=== PATIENT | male | born 1990 | race Caucasian/White ===

== ENCOUNTER 2022-11-07 10:15 | Outpatient (CLI) | payer OTHER ==
[2022-11-07 11:00] VITALS: BP 114/72
--- NOTE | 2022-11-07 11:00 | SLEEP CARE CONSULTATION ---
Information from patient questionnaire entered by Vaughn Dunn. I have reviewed and concur with the information entered by Vaughn Dunn. This document represents the service I personally performed and the decisions made by me, Judy Campoverde ARNP. History of Present Illness Service Date and Time: 11/07/2022 1015 Reason for Visit: New patient Chief Complaint: reports: Unrefreshed sleep, Snoring, Observed pauses in breathing Date of Onset: 10+YRS Usual bedtime: 12-130AM Time it takes to fall asleep: 5MIN Snores at night: Yes Observed to quit breathing while asleep: Yes Sleeps alone due to snoring: Yes Number of times waking at night: 0 Reasons for waking at night: reports: Other ( will wake him up for snoring or gasping for air in his sleep) Toss, Turn, or Twitch while sleeping: Yes Recalls having dreams: No Usually gets out of bed at: 0645; weekends 7-9 AM Feels refreshed in the morning: No Morning headache: No Sleepy or fatigued during the day: Yes Ever fallen asleep while driving: No Takes day naps: No Dreams during day naps: No Prior sleep studies: No Additional HPI information: I had the pleasure of seeing LIGIA BARBOSA today regarding the possibility of him having a sleep disorder. His current complaints are unrefreshed sleep, snoring and observed pauses in breathing. He states he snores a lot. He states 1-2 years ago he sat up in bed and was gasping for air. His woke up and asked him if he was ok, he told her yes and layed back down and went to sleep. He did not remember this happening. He says his will send him to sleep on the couch on his stomach because of the loud snoring and gasping in his sleep. He wakes up feeling tired and groggy. He states he will wake up "dazed" if he sleeps on his back that lasts for a few hours in the morning. He states that if he sleeps 8 hours he feels worse than if he just sleeps 6.5-7 hours. - Parasomnia Symptoms Ever been unable to move upon waking from sleep: No Walks in sleep: No Talks in sleep: No Ever acted out dreams in sleep: No Ever felt weak in the knees when startled or emotional: No Bothered by creepy, crawly, restless sensations in legs: No Problems with memory or concentration: Yes (both, varies on the day) Subjective Initial [place] Sleepiness Scale score: 10 (11/07/22) Past Medical History Past Medical History: reports: Attention deficit, Other (appendectomy, pilonadil cysts) Social History The patient's occupation is a AM. Patient is and lives in [place]. Have you smoked in the past 12 months: No (still vaping daily) Years of smokin Quit date: 2018 Alcohol use: Yes Alcohol amount and frequency: 1-2 DRINKS ONCE EVERY MONTH OR TWO Caffeine use: Yes Caffeine amount and frequency: 140-400MG DAILY Family History Family history of sleep disordered breathing: Yes (son using CPAP) Family Hx Sleep Apnea: Father: Snoring Allergies and Home Medications Known drug allergies: Yes (Amoxicillin) Drug allergies reviewed: Yes Home medication list reviewed: Yes Allergy and home medication list: Medications: Methylphenidate Tylenol, prn Ibuprofen, prn Review of Systems Weight gain over past 5 years: 20 Cardiovascular: denies: high blood pressure Respiratory: denies: shortness of breath Gastrointestinal: denies: heartburn Neurological: denies: headaches, head trauma Psychiatric: reports: Attention Deficit Hyperactivity. denies: anxiety, depression Ear/Nose/Throat: reports: wisdom teeth removed. denies: injury to nose, tonsillectomy Endocrine: denies: thyroid disease Immunologic: denies: allergies to food or environment Physical Exam Vital signs obtained and entered by: VAUGHN Johnson MA Blood Pressure: 114/72 (LEFT ARM) Cuff size: regular Heart Rate: 78 O2 Saturation: 98 Height: 6 ft Weight: 251 lb 9.6 oz Body Mass Index: 34.1 BMI Classification: Obese Neck circumference: 16.5 Mouth and throat: narrow oropharynx Soft palate: long Hard palate: normal Uvula: normal Uvula visualization: 25% Mallampati Class III Tongue: enlarged in size with teeth uriostegui on lateral edges Tonsils: small Neck: normal w/o lymphadenopathy or thyromegaly Heart: regular rate and rhythm Lungs: clear bilaterally Impression and Plan 1. Suspected Obstructive Sleep Apnea-Hypopnea Syndrome, as suggested by a history of loud and irregular snoring, observed cessation of breath while asleep, gasping or choking in sleep, unrefreshed sleep, cognitive impairment, and excessive daytime sleepiness. Narrow oropharynx and obesity are common predisposing factors for obstructive sleep apnea-hypopnea syndrome. I recommend proceeding to polysomnography to confirm the diagnosis and to assess severity. If the patient has significant sleep disordered breathing, a manual CPAP titration study will also be performed to find the optimal treatment pressure. I informed the patient of what the sleep studies involve and after some discussion, obtained agreement to proceed. The pathophysiology of obstructive sleep apnea-hypopnea syndrome was discussed with the patient and health risks of cardiovascular and cerebrovascular disease if not treated. Risks of drowsy driving discussed in detail and patient advised to avoid long distance driving and to assembler for puller over machine at the first sign of drowsiness. Patient agreed to plan. * Schedule polysomnography * Avoid long distance driving or driving when feeling sleepy. * Avoid alcohol, sedative and muscle relaxant around bedtime. * Attempt to lose weight. * Review instructions provided by trained office staff on how to prepare for the sleep study. * Return for follow-up after sleep study completed. Counseling Topics: Weight loss health impact Visit Type: In Office Time Spent with Patient (minutes): 30 Provider Statement: I spent 100% of the Face to Face Visit with the patient with greater than 50% spent counseling the patient and coordination of care.
== END 2022-11-07 10:16 | disposition home or self-care (01) ==
LOC: SC 10:15
PROVIDERS: ATTEND Nurse Practitioner Family
DX: R06.83 Snoring (principal); G47.8 Other sleep disorders; R06.81 Apnea, not elsewhere classified; G47.10 Hypersomnia, unspecified; R53.83 Other fatigue; F98.8 Other specified behavioral and emotional disorders with onset usually occurring in childhood and adolescence; F17.290 Nicotine dependence, other tobacco product, uncomplicated; E66.9 Obesity, unspecified; Z68.34 Body mass index [BMI] 34.0-34.9, adult
CPT/HCPCS: 99203; 99212

== ENCOUNTER 2023-01-31 12:51 | Outpatient (CLI) | payer OTHER ==
[2023-01-31 13:14] VITALS: BP 126/74
--- NOTE | 2023-01-31 13:14 | SLEEP CARE CONSULTATION ---
Information from patient questionnaire entered by Katharine Dunn. I have reviewed and concur with the information entered by Katharine Dunn. This document represents the service I personally performed and the decisions made by , Judy Campoverde ARNP. History of Present Illness Service Date and Time: 01/31/2023 1251 Initial [place] Sleepiness Scale score: 10 (11/07/22) Current [place] Sleepiness Scale score: 13 (01/31/23) Additional HPI information: LIGIA BARBOSA returns for follow up and results of the recently performed polysomnography. I explained the pathophysiology behind obstructive sleep apnea. We then spent quite a bit of time discussing different treatment options. For mild obstructive sleep apnea, surgery and oral appliance are alternatives to nasal CPAP therapy but in moderate or severe cases, nasal CPAP is the most effective and reliable treatment. Because apnea is primarily in supine position, then positional management therapy could be effective. Methods discussed such as positioning with pillows to prevent supine sleep. I reviewed the impact of weight changes on sleep apnea and strongly recommended losing weight. After some discussion, the patient opted to go with the nasal CPAP therapy. Nasal autoCPAP set at 4-15 cmH20 will be ordered with rationale explained. A manual titration study will be ordered if unable to find optimal pressure with office adjustments. I explained how CPAP machine works and what to expect when using the machine. Using CPAP every night in order to get used to it was emphasized. Patient advised to put CPAP mask on before getting into bed so as not to fall asleep without CPAP. To assist acclimation to CPAP use, it could also be used for a short time during day while reading or watching TV. The patient was instructed to call the CPAP supplier to discuss any mechanical problem that may occur. If the mask given is uncomfortable or is difficult to keep on through the night even with adjustment, contact the CPAP supplier as many will replace with another mask style if notified before 30 days. If snoring or perceives is not getting enough air or too much air from the machine, notify this office. Patient counseled not drink alcohol less than 4 hours before bedtime as it can increase snoring and apnea. Patient was cautioned about risks of drowsy driving until sleepiness symptoms resolve. Patient denies drowsy driving. Sleep Study - Results Type of Sleep Study: Polysomnography (COMPLETED 12/14/22) Prior sleep studies: No Polysomnography/Home Sleep Study results: IMPRESSION: The quality of the study is good. The patient had good sleep efficiency. The sleep architecture was abnormal for sleep fragmentation and reduced amount of time spent in REM sleep. Respiratory monitoring showed mild obstructive sleep apnea-hypopnea (AHI = 9.8) associated with frequent arousals, oxyhemoglobin desaturation and mild hypoxia (maurilio oxygen saturation of 87%). The respiratory events occurred almost exclusively during supine sleep (supine AHI = 12.9; non-supine = 0.58). Snore was sporadic and moderate in intensity. There was no significant periodic leg movement of sleep. Cardiac rhythm was normal sinus rhythm without significant arrhythmia. No abnormal behavior (parasomnia) observed during the night. Allergies and Home Medications Known drug allergies: Yes (amoxicillin) Drug allergies reviewed: Yes Home medication list reviewed: Yes (no changes) Allergy and home medication list: Allergies amoxicillin Allergy (Verified 01/30/23 09:38) Review of Systems Review of systems same as previous: Yes (no changes) Physical Exam Vital signs obtained and entered by: KATHARINE Johnson MA Blood Pressure: 126/74 (LEFT ARM) Cuff size: regular Heart Rate: 76 O2 Saturation: 98 Height: 6 ft Weight: 204 lb 6.4 oz Body Mass Index: 27.7 BMI Classification: Overweight Impression and Plan 1. Obstructive Sleep Apnea-Hypopnea Syndrome, mild, with lowest oxygen saturation of 87%. Obviously this is the cause of the patients symptoms of unrefreshed sleep, and excessive daytime sleepiness. Positive pressure therapy could benefit attention deficit. As mentioned above, the patient will be started on nasal autoCPAP therapy with pressure set at 4-15 cmH2O. Compliance guidelines also reviewed. A copy of compliance guidelines will be given for reference at check out. Because the apnea is more severe supine, I instructed to avoid sleeping supine using pillow positioning until able to start CPAP use. 2. Hypoxemia, mild, with a maurilio oxygen saturation of 87% and 0.2 minutes spent under 90%. His baseline oxygen saturation was normal with an average oxygen saturation of 94%. * Nasal auto CPAP therapy, pressure at 4-15 cm H2O. * Attempt to lose weight. * Avoid alcohol consumption near bedtime. * Avoid supine sleep until using CPAP. * The patient is again cautioned about driving until sleepiness completely resolves. * Return one month after CPAP obtained. I will assess response to therapy and compliance at that time. Counseling Topics: Weight loss health impact Visit Type: In Office Time Spent with Patient (minutes): 14 Provider Statement: I spent 100% of the Face to Face Visit with the patient with greater than 50% spent counseling the patient and coordination of care.
== END 2023-01-31 12:52 | disposition home or self-care (01) ==
LOC: SC 12:51
PROVIDERS: ATTEND Nurse Practitioner Family
DX: G47.33 Obstructive sleep apnea (adult) (pediatric) (principal); R09.02 Hypoxemia; E66.3 Overweight; Z68.27 Body mass index [BMI] 27.0-27.9, adult
CPT/HCPCS: 99212